=== PATIENT | female | born 1975 | race Caucasian/White ===

== ENCOUNTER 2021-06-08 19:13 | Observation (INO) | payer OTHER ==
[~2021-06-08] VITALS: Ht 165.1 cm; Wt 84.4 kg
[2021-06-08] MEDS ORDERED: NS 1,000 ML IV ONE ×3 (19:25→22:35)
[2021-06-08] MEDS ORDERED: levETIRAcetam INJection 1,000 MG in D5W 100 ML IV ONE (19:35)
[2021-06-08] MEDS ORDERED: levETIRAcetam 500 MG/5 ML VIAL (KEPPRA IV)(J1953) As Ordered ONE (19:35)
[2021-06-08] MEDS ORDERED: levETIRAcetam INJection 750 MG in D5W 100 ML IV ONE (19:35)
[2021-06-08 19:48] LABS: BASO # 0.1 10^3/uL (0.0-0.2); BASO % 0.4 % (0.0-1.0); EOS # 0.1 10^3/uL (0.0-0.5); EOS % 0.7 % (0.0-3.0); HEMATOCRIT 46.3 % (36.0-47.0); HEMOGLOBIN 15.1 g/dl (12.0-15.5); LYMPH % 25.3 % (24.0-44.0); MEAN CORPUSCULAR HGB CONC 32.6 g/dl (32.0-36.5); MEAN CORPUSCULAR VOLUME 91.9 fl (80.0-96.0); MONO # 0.7 10^3/uL (0.0-0.8); MONO % 4.2 % (2.0-8.0); NEUTROPHILS # 10.9 10^3/uL (1.5-8.5); NEUTROPHILS % 68.8 % (36.0-66.0); PLATELET COUNT, AUTOMATED 234 10^3/uL (150-450); RED BLOOD COUNT 5.04 10^6/uL (4.00-5.40); WHITE BLOOD COUNT 15.9 10^3/uL (4.0-10.0)
[2021-06-08 19:53] LABS: ABG BASE EXCESS -11.5 (-2.0-2.0); ABG O2 SATURATION 96.3 % (95.0-99.0); ABG PARTIAL PRESSURE CO2 31.1 mmHg (35.0-45.0); ABG PARTIAL PRESSURE O2 92.7 mmHg (75.0-100.0); ABG STANDARD HCO3 15.6 MEQ/L (22.0-26.0); ABG pH (ARTERIAL) 7.272 UNITS (7.350-7.450)
[2021-06-08] MEDS ORDERED: LORazepam 2 MG/ML VIAL IV STA (19:53)
[2021-06-08] MEDS ORDERED: LORazepam 2 MG/ML VIAL As Ordered ONE (19:54)
[2021-06-08 20:09] LABS: CK-MB VALUE MASS 1.1 NG/ML (<3.6); MB/CK RELATIVE INDEX 0.74 (< OR =4)
[2021-06-08 20:21] LABS: AMPHETAMINES LEVEL URINE NEGATIVE (NEGATIVE); BARBITURATES URINE NEGATIVE (NEGATIVE); BENZODIAZEPINES URINE POSITIVE (NEGATIVE); CANNABINOIDS URINE POSITIVE (NEGATIVE); COCAINE METABOLITE URINE NEGATIVE (NEGATIVE); METHADONE URINE NEGATIVE (NEGATIVE); OPIATES URINE NEGATIVE (NEGATIVE); PHENCYCLIDINE URINE NEGATIVE (NEGATIVE)
[2021-06-08 20:46] LABS: ACETAMINOPHEN LEVEL < 2.0 UG/ML (10.0-30.0); ALBUMIN 4.3 GM/DL (3.2-5.2); ALT/SGPT 42 U/L (12-78); BILIRUBIN,DIRECT < 0.1 MG/DL (0.0-0.2); BILIRUBIN,TOTAL 0.2 MG/DL (0.2-1.0); BLOOD UREA NITROGEN 14 MG/DL (7-18); CALCIUM LEVEL 9.4 MG/DL (8.5-10.1); CARBON DIOXIDE LEVEL 14 MEQ/L (21-32); CHLORIDE LEVEL 101 MEQ/L (98-107); CREATININE FOR GFR 1.51 MG/DL (0.55-1.30); ETHYL ALCOHOL (ETHANOL) < 0.003 % (0.000-0.010); GLOMERULAR FILTRATION RATE 39.2 (>58); GLUCOSE, FASTING 247 MG/DL (70-100); POTASSIUM SERUM 4.3 MEQ/L (3.5-5.1); SALICYLATE LEVEL 3.9 MG/DL (5.0-30.0); SODIUM LEVEL 138 MEQ/L (136-145); TOTAL PROTEIN 8.1 GM/DL (6.4-8.2)
[2021-06-08] MEDS ORDERED: PHENYTOIN INJ 250 MG/5 ML VIAL (J1165) IV ONE (21:20)
[2021-06-08 21:57] LABS: HCG, SERUM QUALITATIVE NEGATIVE (NEGATIVE)
[2021-06-08] MEDS: NS 1,000 ML IV SCH (22:20)
[2021-06-08] MEDS ORDERED: LORazepam 2 MG/ML VIAL IV PRN (22:20)
[2021-06-08] MEDS ORDERED: CETI-24 PO (22:25)
[2021-06-08] MEDS ORDERED: LEVE750T5 PO (22:25)
[2021-06-08] MEDS ORDERED: ATOR40TA75 PO (22:25)
[2021-06-08] MEDS ORDERED: ERGO500029 PO (22:25)
[2021-06-08] MEDS ORDERED: TRUL0.5I SC (22:25)
[2021-06-08] MEDS ORDERED: KEPP10002 PO (22:25)
[2021-06-08] MEDS ORDERED: RA M10TA PO (22:26)
[2021-06-08] MEDS ORDERED: HOME MED LIST COMPLETE! XX SCH (22:30)
[2021-06-08] MEDS ORDERED: DEXTROSE 50% 50 ML SYRINGE IV PRN (22:35)
[2021-06-08] MEDS ORDERED: GLUCAGON INJ 1MG VIAL SC PRN (22:35)
[2021-06-08] MEDS ORDERED: GLUCOSE 4GM CHEW TABLET PO PRN (22:35)
[2021-06-08 23:49] LABS: FREE T4 1.07 NG/DL (0.76-1.46); PHENYTOIN (DILANTIN) 17.1 UG/ML (10.0-20.0)
[2021-06-09 01:35] VITALS: BP 106/60
[2021-06-09 03:35] LABS: BASO % 0.3 % (0.0-1.0); HEMATOCRIT 39.1 % (36.0-47.0); HEMOGLOBIN 13.3 g/dl (12.0-15.5); LYMPH % 8.3 % (24.0-44.0); MEAN CORPUSCULAR HEMOGLOBIN 29.6 pg (27.0-33.0); MEAN CORPUSCULAR VOLUME 87.1 fl (80.0-96.0); MONO # 0.9 10^3/uL (0.0-0.8); MONO % 7.5 % (2.0-8.0); NEUTROPHILS % 83.6 % (36.0-66.0); PLATELET COUNT, AUTOMATED 176 10^3/uL (150-450); RED BLOOD COUNT 4.49 10^6/uL (4.00-5.40)
[2021-06-09 04:25] VITALS: BP 114/55
[2021-06-09 04:26] LABS: HEMOGLOBIN A1c 5.6 %
[2021-06-09 04:33] LABS: BLOOD UREA NITROGEN 10 MG/DL (7-18); CARBON DIOXIDE LEVEL 22 MEQ/L (21-32); CHLORIDE LEVEL 112 MEQ/L (98-107); CREATININE FOR GFR 0.92 MG/DL (0.55-1.30); GLOMERULAR FILTRATION RATE > 60.0 (>58); GLUCOSE, FASTING 123 MG/DL (70-100); POTASSIUM SERUM 3.9 MEQ/L (3.5-5.1); SODIUM LEVEL 139 MEQ/L (136-145)
[2021-06-09] MEDS: HEPARIN SOD (PORCINE) 5000UNITS/ML 1ML VIAL/SYRINGE SC SCH ×2 (06:45→13:32)
[2021-06-09] MEDS: PHENYTOIN 100 MG/2 ML VIAL (J1165) IV SCH ×2 (06:49→13:36)
[2021-06-09] MEDS: NS 1,000 ML IV SCH ×2 (06:51→14:20)
[2021-06-09] MEDS: HumaLOG INSULIN (NovoLOG) PER UNIT SC SCH ×2 (07:30→12:21)
[2021-06-09 08:00] VITALS: BP 112/56
[2021-06-09] MEDS ORDERED: levETIRAcetam 250MG TABLET (KEPPRA) PO SCH (09:00)
[2021-06-09] MEDS ORDERED: DILA100C PO (10:56)
[2021-06-09] MEDS ORDERED: LEVE250T5 PO (10:56)
[2021-06-09] MEDS ORDERED: KEPP10002 PO (10:56)
[2021-06-09] MEDS ORDERED: HumaLOG INSULIN (NovoLOG) PER UNIT SC SCH (21:00)
== END 2021-06-09 14:55 | disposition home or self-care (01) ==
LOC: M ED 19:13 → M ED INP 19:14 → M PCU 06-09 01:40
PROVIDERS: ADMIT Internal Medicine; ATTEND Internal Medicine
DX: G40.301 Generalized idiopathic epilepsy and epileptic syndromes, not intractable, with status epilepticus (principal); E87.2 Acidosis; R94.6 Abnormal results of thyroid function studies; N17.9 Acute kidney failure, unspecified; D72.829 Elevated white blood cell count, unspecified; F12.10 Cannabis abuse, uncomplicated; E11.9 Type 2 diabetes mellitus without complications; Z79.899 Other long term (current) drug therapy; Z79.84 Long term (current) use of oral hypoglycemic drugs
CPT/HCPCS: 36415; 36600; 51701; 70450; 71045; 80048; 80076; 80143; 80185; 80307; 81001; 82077; 82550; 82553; 82803; 83036; 83605; 84439; 84443; 84703; 85025; 87798; 93005; 93041; 96361; 96365; 96372; 96375; 96376; 99285; J1165; J1644; J1953; J2060

== ENCOUNTER → 2021-07-24 | Outpatient (CLI) | payer OTHER ==
[~2021-07-24] MED LIST: ATOR40TA75 PO; CETI-24 PO; DILA100C PO; ERGO500029 PO; KEPP10002 PO; LEVE250T5 PO; LEVE750T5 PO; RA M10TA PO; TRUL0.5I SC
== END ==
LOC: M LABSMTC 11:46
PROVIDERS: ATTEND Psychiatry & Neurology Neurology
DX: Z11.52 Encounter for screening for COVID-19 (principal)